=== PATIENT | female | born 1990 | race African-American/Black ===

== ENCOUNTER 2016-09-16 22:00 | Emergency (ER) | payer OTHER ==
[~2016-09-16 22:00] MED LIST: ALBUTEROL20 ml INH; AMOXICILLIN PO; ANSAID100 MG PO; BACITRACIN3.5 GM OPT OD; BACITRACIN30 GM TOP; BACTRIM DS TABL1 TA1 PO; BENZONATATE PO; CLEOCIN HCL150 MG PO; COLACE; COLACE PO; DICYCLOMINE HCL20 MG PO; DIFLUCAN PO; FAMOTIDINE PO; FERROUS SULFATE; FLEXERIL10 M1 PO; FLEXERIL10 MG; FLEXERIL10 MG PO; IBUPROFEN PO; IBUPROFEN800 MG PO; IRON; IRON1 TA1 PO; KEFLEX PO; MACROBID100 M1 PO; MEDROL4 MG/DOSE- PO; METRONIDAZOLE PO; MOBIC PO; MOTRIN600 M2 DOB; NAPROSYN-EC500 M1 PO; NAPROXEN PO; NO MEDICATIONS; NORMODYNE PO; NORVASC PO; PEPCID AC20 M2 PO; PERCOCET PO; PHENERGAN PO; PREDNISONE PO; PRENATAL1 TA1 PO; PRILOSEC20 MG PO; ROBITUSSIN A-C S5 ML PO; SUPRAX400 M1 PO; TYLENOL #3 PO; ULTRACET TABLET1 TAB PO; VIBRAMYCIN100 M1 PO; VOLTAREN50 MG PO; VOLTAREN75 MG PO; ZITHROMAX PO; ZOFRAN ODT4 MG PO
== END 2016-09-17 01:04 | disposition home or self-care (01) ==
LOC: SED 22:00
DX: L23.9 Allergic contact dermatitis, unspecified cause (principal); I10 Essential (primary) hypertension; F17.210 Nicotine dependence, cigarettes, uncomplicated; Z88.2 Allergy status to sulfonamides
CPT/HCPCS: 99282

== ENCOUNTER 2016-11-20 14:06 | Emergency (ER) | payer OTHER | END 2016-11-20 15:06 | disposition home or self-care (01) | LOC: SED 14:06 | DX: R51 Headache (principal); I10 Essential (primary) hypertension; F17.200 Nicotine dependence, unspecified, uncomplicated; Z88.2 Allergy status to sulfonamides; Z88.8 Allergy status to other drugs, medicaments and biological substances | CPT/HCPCS: 99282; J1885 ==

== ENCOUNTER 2017-02-05 00:39 | Emergency (ER) | payer OTHER ==
[~2017-02-05] VITALS: Ht 165.1 cm; Wt 103.9 kg
== END 2017-02-05 01:07 | disposition home or self-care (01) ==
LOC: SED 00:39
DX: S29.012A Strain of muscle and tendon of back wall of thorax, initial encounter (principal); I10 Essential (primary) hypertension; F17.210 Nicotine dependence, cigarettes, uncomplicated; Z88.8 Allergy status to other drugs, medicaments and biological substances; V49.40XA Driver injured in collision with unspecified motor vehicles in traffic accident, initial encounter
CPT/HCPCS: 99284